=== PATIENT | female | born 1935 | race Caucasian/White ===

== ENCOUNTER 2017-05-09 15:33 | Emergency (ER) | payer SELFPAY ==
[~2017-05-09] VITALS: Ht 142.2 cm; Wt 45.5 kg
[2017-05-09 15:41] VITALS: TEMP 98.3
[2017-05-09 15:47] VITALS: BP 189/87; PULSE 96; RESP 16; TEMP 98.3; O2SAT 95
[2017-05-09] MEDS ORDERED: ATOR20TA15 PO (15:51)
--- NOTE | 2017-05-09 15:51 | PD ---
HPI Chief Complaint: Pain: Acute or Chronic Time Seen by Provider: 15:45 Travel History International Travel<30 days: No Contact w/Intl Traveler<30days: No Traveled to known affect area: No History of Present Illness HPI MALDIVIAN SPEAKING PATIENT, ARRIVED C/O SLIPPING WHIL IN KITCHEN BUT DID NOT FALL DOWN INSTEAD SHE GRABBED ON TO TABLE AND DID NOT FALL DOWN BUT PATIENT STATES THAT SHE TWISTED HER LEFT KNEE (THOUGH SHE POINTS TO HER UPPER THIGH) ALL:DENIES PSHX: LEFT HIP SURGERY PFSH Past Medical History Cardiovascular Problems: Yes Allergies-Medications (Allergen,Severity, Reaction): Coded Allergies: No Known Allergies (Verified Allergy, Unknown, 05/09/17) Reported Meds & Prescriptions Reported Meds & Active Scripts Active Reported Atorvastatin (Atorvastatin Calcium) 20 Mg Tab 20 Mg PO HS Review of Systems Except as stated in HPI: all other systems reviewed are Neg Musculoskeletal: Positive: Pain (LEFT KNEE/HIP PAIN) Physical Exam Narrative GENERAL: SKIN: Warm and dry. HEAD: Atraumatic. Normocephalic. EYES: Pupils equal and round. No scleral icterus. No injection or drainage. ENT: No nasal bleeding or discharge. Mucous membranes pink and moist. NECK: Trachea midline. No JVD. CARDIOVASCULAR: Regular rate and rhythm. RESPIRATORY: No accessory muscle use. Clear to auscultation. Breath sounds equal bilaterally. GASTROINTESTINAL: Abdomen soft, non-tender, nondistended. Hepatic and splenic margins not palpable. MUSCULOSKELETAL: Extremities without clubbing, cyanosis, or edema. No obvious deformities EXCEPT FOR SUPRAPATELLAR EDEMA NOTED NEUROLOGICAL: Awake and alert. No obvious cranial nerve deficits. Motor grossly within normal limits. Five out of 5 muscle strength in the arms and legs. Normal speech. PSYCHIATRIC: Appropriate mood and affect; insight and judgment normal. Data Data Last Documented VS Vital Signs Date Time Temp Pulse Resp B/P (MAP) Pulse Ox O2 Delivery O2 Flow Rate FiO2 05/09/17 15:55 96 20 147/80 (102) 94 Room Air 05/09/17 15:47 98.3 Orders Orders Hip, Uni(Ap&Lat) W Ap Pelvis (05/09/17 15:45) Femur (Ap & Lat/2vws) (05/09/17 16:24) Morphine Inj (Morphine Inj) (05/09/17 17:00) Ondansetron Inj (Zofran Inj) (05/09/17 17:00) ^ Knee Immobilizer (05/09/17 16:58) Crutches (05/09/17 ) Morphine Inj (Morphine Inj) (05/09/17 17:15) MDM Medical Decision Making Medical Screen Exam Complete: Yes Emergency Medical Condition: Yes Medical Record Reviewed: Yes Differential Diagnosis FX V DISLOCATION V KNEE EFFUSION V KNEE LIGAMENT TEAR Diagnosis Primary Impression: Effusion, left knee Referrals: Neno East MD FOR FURTHER EVALUATION OF YOUR KNEE PAIN (POSSIBLE LIGAMENT INJURY) Patient Instructions: General Instructions, Swollen Knee Joint (ED) Scripts Tramadol (Ultram) 50 Mg Tab 50 MG PO Q4H Y for PAIN, #14 TAB 0 Refills Prov: Sharath Haro MD 05/09/17 Disposition: 01 DISCHARGE HOME Condition: Stable Sharath Haro MD May 09, 2017 15:51
[2017-05-09 15:55] VITALS: BP 147/80; PULSE 96; RESP 20; O2SAT 94
--- NOTE | 2017-05-09 16:47 | RADRPT ---
EXAM DATE/TIME: 05/09/2017 16:11 [facility] COMPARISON: No previous studies available for comparison. INDICATIONS : Left leg pain after fall today. MEDICAL HISTORY : None. SURGICAL HISTORY : ORIF left hip. ENCOUNTER: Initial ACUITY: 1 day PAIN SCORE: Non-responsive. LOCATION: Left hip. FINDINGS: Side plate and multiple screws traverse the proximal femur with excellent anatomical alignment withou t evidence for acute fracture. The joint spaces are well maintained.. CONCLUSION: No definite fracture is seen for technique. KWoody Jose MD on May 09, 2017 at 16:43 Board Certified Radiologist. This report was verified electronically.
[2017-05-09] MEDS ORDERED: ONDANSETRON HCL 4 MG/2 ML VIAL IVP ONE (17:00)
[2017-05-09] MEDS ORDERED: MORPHINE SULFATE 4 MG/ML INJ IV PUSH ONE (17:00)
[2017-05-09] MEDS ORDERED: MORPHINE SULFATE 2 MG/ML INJ IV PUSH ONE (17:15)
--- NOTE | 2017-05-09 17:31 | RADRPT ---
EXAM DATE/TIME: 05/09/2017 16:35 [facility] COMPARISON: No previous studies available for comparison. INDICATIONS : Left leg pain after fall today. Pain near knee. MEDICAL HISTORY : None. SURGICAL HISTORY : ORIF left hip. ENCOUNTER: Initial ACUITY: 1 day PAIN SCORE: 10/10 LOCATION: Left leg. FINDINGS: Side plate and screws traverse the proximal femur and there is old healed fracture. There is no evide nce for acute fracture. Bony structures are osteopenic. There is a large joint effusion in the suprap atellar bursa. CONCLUSION: Large joint effusion. Rand Jose MD on May 09, 2017 at 17:28 Board Certified Radiologist. This report was verified electronically.
[2017-05-09] MEDS ORDERED: TRAM50 PO (17:46)
== END 2017-05-09 18:14 | disposition home or self-care (01) ==
LOC: NEPE 15:33
DX: M25.462 Effusion, left knee (principal); Z79.899 Other long term (current) drug therapy
CPT/HCPCS: 73502; 73552; 96374; 96375; 99284; E0113; J2270; J2405